=== PATIENT | male | born 1965 | race Caucasian/White ===

== ENCOUNTER 2019-04-21 00:45 | Emergency (ER) | payer OTHER ==
[~2019-04-21] VITALS: Ht 185.4 cm; Wt 82.3 kg
[~2019-04-21 00:45] MED LIST: AMLO-512 PO; ASPI81TA87 PO; METO25TA6 PO; NITR0.4T50 SL; OMEP20CA4 PO; SIMV20TA6 PO
[2019-04-21] MEDS ORDERED: ALBUTEROL SULFATE 2.5 MG/0.5 ML NEB SOLUTION NEB ONE (03:45)
[2019-04-21] MEDS ORDERED: 0.9% SODIUM CHLORIDE 5 ML NEB SOLUTION NEB ONE (04:10)
[2019-04-21 05:23] VITALS: BP 148/88
== END 2019-04-21 05:25 | disposition home or self-care (01) ==
LOC: EMS 00:57
DX: R06.00 Dyspnea, unspecified (principal); J32.9 Chronic sinusitis, unspecified; I10 Essential (primary) hypertension; F17.210 Nicotine dependence, cigarettes, uncomplicated; Z79.899 Other long term (current) drug therapy; Z79.82 Long term (current) use of aspirin
CPT/HCPCS: 93005; 94640; 99406